=== PATIENT | female | born 1995 | race Caucasian/White ===

== ENCOUNTER 2016-07-26 15:12 | Emergency (ER) | payer OTHER ==
[2016-07-26 15:15] VITALS: BP 129/78
--- NOTE | 2016-07-26 15:40 | DR.GENAD ---
HPI - PCP Primary Care Physician: NFXiang - HPI Comment HPI Comment: PATIENT IS HAVING LOWER ABDOMINAL PAIN TIMES 2 WEEKS. PAIN WITH INTERMITTENT NAUSEA. NO VOMITING. INITIALLY, SOME DYSURIA BUT NONE CURRENTLY. NO FEVER. NO VAGINAL DISCHARGE. - Complaint/Symptoms Chief Complaint Doctors Comments: LOWER ABDOMINAL PAIN WITH NAUSEA, MISS PERIOD. Chief Complaint:: PT. C/O NAUSEA, MORE SO WITH EATING, WELL LOWER ABDOMINAL PAIN. - Nurses notes reviewed Nurses Notes Review: Yes - Source History Provided: Patient - Mode of Arrival Mode of Arrival: Ambulatory - Timing Onset of Chief Complaint: 07/12/16 Came on: Suddenly - Duration Duration: Constant Duration: Days - Severity Severity: Moderate PMH - PMH Past Medical History: No Past Surgical History: Yes Surgical History: Tonsillectomy - Family History History of Family Medical Conditions: Yes Family Medical History: Diabetes Mellitus, Cancer - Social History Does patient currently use any type of tobacco product: No Have you used tobacco products in the last 12 months: No Type of Tobacco Use: None Does any household member use tobacco: No Alcohol Use: Occasionally Do you use any recreational Drugs:: No Lives With: Significant Other Lives Where: Home - infectious screening In the last 2 months have you had wt loss of >10#?: NO Have you had fever, night sweats or hemotysis?: No Have you traveled outside the country in the last 6 months?: No Isolation: Standard ROS - Review of Systems Constitutional: No Symptoms Reported. negative: Chills, Fever, Weakness, Fatigue Eyes: No Symptoms Reported. negative: Eye Pain, Discharge ENTM: No Symptoms Reported. negative: Ear Pain, Nose Discharge, Nose Congestion , Throat Pain Respiratoy: No Symptoms Reported. negative: Productive Cough, Short of Breath, Wheezing, Hemoptysis Cardiovascular: No Symptoms Reported. negative: Chest Pain Gastrointestinal/Abdominal: Abdominal Pain (LOWER ABDOMEN). negative: Diarrhea , Nausea, Vomiting Genitourinary: Dysuria. negative: Frequency, Hematuria Neurological: No Symptoms Reported. negative: Headache, Weakness, Dizziness Musculoskeletal: Back Pain Integumentary: No Symptoms Reported Hematologic/Lymphatic: No Symptoms Reported Endocrine: No Symptoms Reported All Other Systems: Reviewed and Negative PE - Vital Signs Vitals: Temperature 98.9 F Pulse Rate 121 Respiratory Rate 17 Blood Pressure 129/78 O2 Sat by Pulse Oximetry 97 - General Limitations: No Limitations General Appearance: Alert - Head Head Exam: Normal Inspection - Eyes Eye exam: Normal Appearance - ENT ENT Exam: Normal External Ear Exam External Ear Exam: Normal External Inspection TM/Canal Exam: Bilateral Normal Nose Exam: Normal Nose Exam Mouth Exam: Normal Inspection Throat Exam: Normal Inspection - Neck Neck Exam: Trachea Midline - Chest Chest Inspection: Symmetric Chest Wall Rise - Respiratory Respiratory Exam: Normal Lung Sounds Bilat Respiratory Exam: Bilateral Clear to Auscultation - Cardiovascular Cardiovascular Exam: Regular Rate, Normal Rhythm, Normal Heart Sounds - Abdominal Exam Abdominal Exam: Normal Bowel Sounds, Soft, Tenderness Abdominal Tenderness: RLQ, LLQ, Suprapubic - Extremities Extremities Exam: Normal Inspection - Back Back Exam: Normal Inspection - Neurologic Neurological Exam: Alert, Oriented X3 - Psychiatric Psychiatric Exam: Normal Affect, Normal Mood - Skin Skin Exam: Normal Color MDM - Differential Diagnosis Differential Diagnosis: UTI, KIDNEY STONE, BACK PAIN, ABDOMINAL PAIN Course - Treatment Treatment: SEE ORDERS - Education/Counseling Education/Counseling: Patient, Education Educated On: Treatment, Diagnosis, Needs for Follow Up ROR - Labs Reviewed Laboratory Results Reviewed?: Yes Laboratory: HCG, Qual Positive >10 mIU/mL 07/26/16 17:40 Specimen Type Clean catch urine 07/26/16 15:51 Urine Color Anita (YELLOW) 07/26/16 15:51 Urine Appearance Slightly hazy (CLEAR) 07/26/16 15:51 Urine pH 5.0 (5.0 - 8.0) 07/26/16 15:51 Ur Specific [place] 1.020 (1.000-1.030) 07/26/16 15:51 Urine Protein 1+ (NEGATIVE) 07/26/16 15:51 Urine Glucose (UA) Negative (NEGATIVE) 07/26/16 15:51 Urine Ketones Negative (NEGATIVE) 07/26/16 15:51 Urine Occult Blood Negative (NEGATIVE) 07/26/16 15:51 Urine Nitrite Negative (NEGATIVE) 07/26/16 15:51 Urine Bilirubin Negative (NEGATIVE) 07/26/16 15:51 Urine Urobilinogen 1+ (NORMAL) 07/26/16 15:51 Ur Leukocyte Esterase 1+ (NEGATIVE) 07/26/16 15:51 Urine RBC None seen /HPF (NEGATIVE) 07/26/16 15:51 Urine WBC 0-3 /HPF (NEGATIVE) 07/26/16 15:51 Ur Squamous Epith Cells Numerous /HPF (NEGATIVE) 07/26/16 15:51 Urine Bacteria 1+ /HPF (NEGATIVE) 07/26/16 15:51 Urine Mucus Many /HPF (NEGATIVE) 07/26/16 15:51 Ur Culture Indicated? No/not indicated 07/26/16 15:51 - Diagnosis Discharge Problem: Abdominal pain during in first trimester Qualifiers: Weeks of gestation: less than 8 weeks Qualified Code(s): Z3A.01 - Less than 8 weeks gestation of - Discharge Plan Disposition: 01 HOME, SELF-CARE Condition: Stable - Follow ups/Referrals Follow ups/Referrals: LEXIE BASS [STAFF PHYSICIAN] - 2 days NFD,None [Primary Care Provider] - 2 days - Instructions Instructions: Test Information, Dysuria
[2016-07-26 16:56] LABS: BILIRUBIN,URINE NEGATIVE (NEGATIVE); BLOOD/HEMOGLOBIN,URINE NEGATIVE (NEGATIVE); GLUCOSE, URINE NEGATIVE (NEGATIVE); KETONES,URINE NEGATIVE (NEGATIVE); LEUKOCYTE ESTERASE ,URINE 1+ (NEGATIVE); NITRITES,URINE NEGATIVE (NEGATIVE); PROTEIN,URINE 1+ (NEGATIVE); UROBILINOGEN,URINE 1+ (NORMAL)
[2016-07-26 17:04] LABS: APPEARANCE,URINE SLIGHTLY HAZY (CLEAR); BACTERIA,URINE 1+ /HPF (NEGATIVE); COLOR,URINE AMBER (YELLOW); RBC,URINE NONE SEEN /HPF (NEGATIVE); SQUAMOUS EPITHELIAL CELL,UR NUMEROUS /HPF (NEGATIVE)
[2016-07-26 17:05] LABS: MUCUS,URINE MANY /HPF (NEGATIVE)
[2016-07-26 18:00] LABS: SERUM PREGNANCY TEST, QUAL POSITIVE >10 mIU/mL
== END 2016-07-26 18:23 | disposition home or self-care (01) ==
LOC: ER 15:24
DX: R10.84 Generalized abdominal pain (principal); Z3A.01 Less than 8 weeks gestation of pregnancy
CPT/HCPCS: 36415; 81001; 84703; 99282

== ENCOUNTER 2016-10-09 13:32 | Emergency (ER) | payer OTHER ==
[2016-10-09 13:35] VITALS: BP 136/79
--- NOTE | 2016-10-09 13:47 | DR.GENAD ---
HPI - PCP Primary Care Physician: NFD - HPI Comment HPI Comment: LATE PRIOD FOR 3 WEEKS. DENIES VAGINAL BLEEDING OR ABDOMINAL PAIN. - Complaint/Symptoms Chief Complaint Doctors Comments: LATE PERIOD. Chief Complaint:: PT. STATES SHE THINKS SHE MIGHT BE BUT SHE IS NOT SURE. PT. HAS TAKEN 1 AT HOME TEST AND IT WAS POSITIVE. - Nurses notes reviewed Nurses Notes Review: Yes - Source History Provided: Patient - Mode of Arrival Mode of Arrival: Ambulatory - Timing Onset of Chief Complaint: 10/09/16 Came on: Suddenly - Duration Duration: Constant Duration: Days (PERIOD LATE) - Severity Severity: None PMH - PMH Past Medical History: Yes Past Medical History Comment: ABNORMAL HEART BEAT Past Surgical History: Yes Surgical History: Tonsillectomy - Family History History of Family Medical Conditions: Yes Family Medical History: Diabetes Mellitus, Cancer - Social History Does patient currently use any type of tobacco product: No Have you used tobacco products in the last 12 months: No Type of Tobacco Use: None Does any household member use tobacco: No Alcohol Use: None Do you use any recreational Drugs:: No Lives With: Significant Other Lives Where: Home - infectious screening In the last 2 months have you had wt loss of >10#?: NO Have you had fever, night sweats or hemotysis?: No Have you traveled outside the country in the last 6 months?: No Isolation: Standard ROS - Review of Systems Constitutional: No Symptoms Reported Eyes: No Symptoms Reported ENTM: No Symptoms Reported Respiratoy: No Symptoms Reported Cardiovascular: No Symptoms Reported Gastrointestinal/Abdominal: No Symptoms Reported Genitourinary: No Symptoms Reported Neurological: No Symptoms Reported Musculoskeletal: No Symptoms Reported Integumentary: No Symptoms Reported Hematologic/Lymphatic: No Symptoms Reported Endocrine: No Symptoms Reported All Other Systems: Reviewed and Negative PE - Vital Signs Vitals: Temperature 98 F Pulse Rate 122 Respiratory Rate 17 Blood Pressure 136/79 O2 Sat by Pulse Oximetry 98 - General Limitations: No Limitations General Appearance: Alert - Head Head Exam: Normal Inspection - Eyes Eye exam: Normal Appearance - ENT ENT Exam: Normal External Ear Exam External Ear Exam: Normal External Inspection TM/Canal Exam: Bilateral Normal Nose Exam: Normal Nose Exam Mouth Exam: Normal Inspection Throat Exam: Normal Inspection - Neck Neck Exam: Trachea Midline - Chest Chest Inspection: Symmetric Chest Wall Rise - Respiratory Respiratory Exam: Normal Lung Sounds Bilat Respiratory Exam: Bilateral Clear to Auscultation - Cardiovascular Cardiovascular Exam: Regular Rate, Normal Rhythm, Normal Heart Sounds - Abdominal Exam Abdominal Exam: Normal Bowel Sounds, Soft. negative: Tenderness - Extremities Extremities Exam: Normal Inspection - Back Back Exam: Normal Inspection - Neurologic Neurological Exam: Alert, Oriented X3 - Psychiatric Psychiatric Exam: Normal Affect, Normal Mood - Skin Skin Exam: Normal Color MDM - Differential Diagnosis Differential Diagnosis: LATE PERIOD, Course - Treatment Treatment: SEE ORDERS - Education/Counseling Education/Counseling: Patient, Education Educated On: Diagnosis, Needs for Follow Up ROR - Labs Reviewed Laboratory Results Reviewed?: Yes Laboratory: HCG, Qual Positive >10 mIU/mL 10/09/16 13:45 - Diagnosis Discharge Problem: Qualifiers: Weeks of gestation: less than 8 weeks Qualified Code(s): Z3A.01 - Less than 8 weeks gestation of - Discharge Plan Disposition: 01 HOME, SELF-CARE Condition: Stable - Follow ups/Referrals Follow ups/Referrals: NFD,None [Primary Care Provider] - 3 days - Instructions Instructions: Additional Instructions: RETURN TO ED IF WORSE. FOLLOW UP WITH YOUR OB DOCTOR.
[2016-10-09 14:07] LABS: SERUM PREGNANCY TEST, QUAL POSITIVE >10 mIU/mL
== END 2016-10-09 14:25 | disposition home or self-care (01) ==
LOC: ER 13:37
DX: Z3A.01 Less than 8 weeks gestation of pregnancy (principal)
CPT/HCPCS: 36415; 84703; 99282